=== PATIENT | male | born 1960 | race Hispanic/Latino ===

== ENCOUNTER 2016-12-11 10:15 | Observation (INO) | payer MEDICARE, MEDICAID ==
[2016-12-11 10:16] VITALS: BMI 19.0
[2016-12-11 10:25] VITALS: RESP 18
--- NOTE | 2016-12-11 10:45 | C.PDOC ---
History Of Present Illness 56-year-old male, presents to the emergency department s/p suicide attempt this morning. Patient is complaining of worsening depression and suicidality. Patient states he tried to hang himself, but didn't follow through. Patient is complaining of depression. Denies neck pain, swelling or shortness of breath. Denies overdose, or other injury. Patient is non-compliant with Celexa x2 days. Has a Hx of prior admission for suicide. SP SUICIDE ATTEMPT THIS MORNING, CO WORSENING DEPRESSION AND SUICIDALITY. PS TRIED TO HANG HIMSELF BUT DIDNT FOLLOW THROUGH. CO DEPRESSION. DENIES NECK PAIN , SWELL, SOB. DENIES OVERDOSE, OTHER INJURY. NONCOMPLAINT W CELEXA X 2 DAYS. PRIOR ADMISSION FOR SUICIDE ATTEMPT EXAM MOD DIST NONTOXIC HEENT NEG NECK ATRAUM NO SWELL, NONTEND, NO STRIDOR LUNGS NARD EXT ATRAUM SKIN INTACT PSYCH FLAT AFFECT, NO PSYCHOSIS. +SI Time Seen by Provider: 12/11/16 10:26 Chief Complaint (Nursing): Psychiatric Evaluation Past Medical History Reviewed: Historical Data, Nursing Documentation, Vital Signs Vital Signs: Last Vital Signs Temp 97.9 F 12/11/16 13:16 Pulse 70 12/11/16 13:16 Resp 18 12/11/16 13:16 BP 105/71 12/11/16 13:16 Pulse Ox 96 12/11/16 13:16 - Medical History PMH: Anemia, Anxiety, Bipolar Disorder, Depression, Personality Disorder, Post Traumatic Stress Disorder, Chronic Pain Denies: Diabetes, Hepatitis, HIV, HTN, Chronic Kidney Disease, Seizures, Sexually Transmitted Disease - [facility] Procedures DETOXIFICATION SERVICES FOR SUBSTANCE ABUSE TREATMENT (08/14/16) GROUP AIRPLANE ELECTRICIAN FOR SUBSTANCE ABUSE TREATMENT, PSYCHOEDUCATION (08/14/16) GROUP PSYCHOTHERAPY (08/07/16) INDIVID PSYCHOTHERAP NEC (11/22/14) INDIVIDUAL PSYCHOTHERAPY, BEHAVIORAL (08/07/16) INDIVIDUAL PSYCHOTHERAPY, COGNITIVE-BEHAVIORAL (04/26/16) INDIVIDUAL PSYCHOTHERAPY, SUPPORTIVE (04/26/16) OTHER GROUP THERAPY (11/22/14) PSYCHIAT DRUG THERAP NEC (12/30/13) Family History: States: Unknown Family Hx - Social History Hx Tobacco Use: Yes (heavy smoker) Hx Alcohol Use: No Hx Substance Use: Yes (Opiates, Benzo) - Immunization History Hx Tetanus Toxoid Vaccination: Yes Hx Influenza Vaccination: Yes Hx Pneumococcal Vaccination: No Review Of Systems Cardiovascular: Negative for: Chest Pain Respiratory: Negative for: Shortness of Breath Musculoskeletal: Negative for: Neck Pain Skin: Negative for: Rash Psych: Positive for: Depression, Suicidal ideation Physical Exam - Physical Exam Appears: Non-toxic, No Acute Distress, Other (FLAT AFFECT, NO PSYCHOSIS. +SI) Skin: Warm, Dry, No Rash Head: Atraumatic, Normacephalic Eye(s): bilateral: Normal Inspection, PERRL Nose: Normal Oral Mucosa: Moist Lips: Normal Appearing Neck: Normal ROM, Supple, Other ( ATRAUM NO SWELL, NONTEND, NO STRIDOR) Chest: Symmetrical Respiratory: No Accessory Muscle Use Extremity: Normal ROM Neurological/Psych: Oriented x3, Normal Speech ED Course And Treatment - Laboratory Results Result Diagrams: 12/11/16 10:53 12/11/16 10:53 ECG: Interpreted By Me ECG Rhythm: Sinus Rhythm ECG Interpretation: Normal Rate From EC O2 Sat by Pulse Oximetry: 100 Pulse Ox Interpretation: Normal Progress - Data Reviewed Data Reviewed: Lab, Old records ED OBSERVATION Discharge: Yes Date of observation admission: 12/11/16 Time of observation admission: 10:30 - Observation admission statement Patient is being placed in observation because:: SUICIDE ATTEMPT - Goals of Observation Goals of observation are:: MED CLEAR, PSYCH EVAL - Progress Note Progress Note: 12/11/16 11:31 EXAM UNCHANGED. PT MEDICALLY CLEARED FOR PSYCH EVAL. CRISIS NOTIFIED. 12/11/16 12:34 PENDING CRISIS DISPO. CO EXAC CHRONIC RUE PAIN, DUE FOR OXYCONTIN DOSE. LAST DOSE 6 HRS AGO 12/11/16 13:54 CLEARED FOR DC BY DR REESE PER CRISIS. OUTPT REFERRAL. Disposition Counseled Patient/Family Regarding: Studies Performed, Diagnosis, Need For Followup - Disposition Disposition: HOME/ ROUTINE Disposition Time: 13:55 Condition: GOOD - Clinical Impression Clinical Impression: Depression, Chronic pain - Scribe Statement The provider has reviewed the documentation as recorded by the Alessandra Jin All medical record entries made by the Gomezibkeyonna were at my direction and personally dictated by me. I have reviewed the chart and agree that the record accurately reflects my personal performance of the history, physical exam, medical decision making, and the department course for this patient. I have also personally directed, reviewed, and agree with the discharge instructions and disposition.
[2016-12-11 11:01] LABS: BASO % 0.8 % (0.0-2.0); EOS % 0.6 % (0.0-4.0); HEMATOCRIT 38.9 % (35.0-51.0); LYMPH # 1.4 K/uL (1.0-4.3); LYMPH % 28.9 % (20.0-40.0); MEAN CELL VOLUME 87.3 fL (80.0-94.0); MEAN CORPUSCULAR HEMOGLOBIN 29.3 pg (27.0-31.0); MEAN CORPUSCULAR HGB CONC 33.5 g/dL (33.0-37.0); MEAN PLATELET VOLUME 7.1 fL (7.2-11.7); MONO # 0.4 K/uL (0.0-0.8); MONO % 8.2 % (0.0-10.0); RED CELL DISTRIBUTION WIDTH 14.2 % (11.5-14.5); WHITE BLOOD COUNT 4.8 K/uL (4.8-10.8)
[2016-12-11 11:09] LABS: RBC URINE 28 /hpf (0-3); URINE BILIRUBIN NEGATIVE (NEGATIVE); URINE BLOOD 2+ (NEGATIVE); URINE COLOR Yellow (YELLOW); URINE GLUCOSE (UA) NORMAL (Normal); URINE KETONE NEGATIVE (NEGATIVE); URINE LEUKOCYTE ESTERASE NEG Leu/uL (Negative); URINE PROTEIN NEGATIVE (NEGATIVE); URINE UROBILINOGEN NORMAL mg/dL (0.2-1.0); WBC URINE 1 /hpf (0-5)
[2016-12-11 11:13] LABS: CHLORIDE 99 mmol/L (98-107)
[2016-12-11 11:14] LABS: POTASSIUM 4.1 mmol/L (3.6-5.2); SODIUM 140 mmol/L (132-148)
[2016-12-11 11:16] LABS: ALB/GLOB RATIO 1.3 (1.0-2.1); ALKALINE PHOSPHATASE 72 U/L (38-126); AST/SGOT 33 U/L (17-59); BILIRUBIN,TOTAL 0.6 mg/dL (0.2-1.3); BLOOD UREA NITROGEN 14 mg/dL (9-20); CARBON DIOXIDE 25 mmol/L (22-30); GFR AFRICAN-AMERICAN > 60; TOTAL PROTEIN 7.7 g/dL (6.3-8.3)
[2016-12-11 11:17] LABS: ALT/SGPT 33 U/L (21-72); CALCIUM 9.2 mg/dl (8.6-10.4); GLUCOSE,RANDOM 102 mg/dL (75-110)
[2016-12-11 11:18] LABS: ALCOHOL SERUM < 10 mg/dl (0-10)
[2016-12-11] MEDS ORDERED: oxyCODONE 30 mg Immediate Release Tab PO STA (12:34)
[2016-12-11] MEDS ORDERED: oxyCODONE 30 mg Immediate Release Tab ONE (12:38)
[2016-12-11 13:16] VITALS: BP 105/71; PULSE 70; TEMP 97.9
[2016-12-11 13:55] VITALS: O2SAT 100
--- NOTE | 2016-12-12 17:41 | CARD ---
APPROVED REPORT EKG Measurement Heart [id number] <Conclusion> Normal sinus rhythm Normal ECG
== END 2016-12-11 13:55 | disposition home or self-care (01) ==
LOC: C.ER 10:15 → C.9OBSV 10:30
PROVIDERS: ADMIT Emergency Medicine; ATTEND Emergency Medicine
DX: F32.89 Other specified depressive episodes (principal); F43.10 Post-traumatic stress disorder, unspecified; G89.29 Other chronic pain; F12.10 Cannabis abuse, uncomplicated; F11.10 Opioid abuse, uncomplicated; F19.10 Other psychoactive substance abuse, uncomplicated
CPT/HCPCS: 36415; 80053; 81001; 85025; 93005; 99285; G0378; G0480

== ENCOUNTER 2017-02-12 02:57 | Inpatient (IN) | payer MEDICARE, MEDICAID ==
[2017-02-12 02:57] VITALS: BMI 19.0
--- NOTE | 2017-02-12 03:09 | C.PDOC ---
History Of Present Illness Patient presents to the ER with a complaint of suicidal ideation. Patient is noted to have a superficial abrasion over his left wrist, denies any physical complaints at this time. Time Seen by Provider: 02/12/17 03:08 Chief Complaint (Nursing): Psychiatric Evaluation History Per: Patient History/Exam Limitations: no limitations Onset/Duration Of Symptoms: Hrs Current Symptoms Are (Timing): Still Present Suicide/Self Injury Attempted (Context): Cut Wrists Modifying Factor(s): None Severity: None Pain Scale Rating Of: 0 Associated Symptoms: Suicidal Thoughts. denies: Depression, Suicidal Plan Involuntary Hold By: None Recent travel outside of the [place]: No Past Medical History Reviewed: Historical Data, Nursing Documentation, Vital Signs Vital Signs: Last Vital Signs Temp 97.8 F 02/12/17 04:25 Pulse 68 02/12/17 04:25 Resp 16 02/12/17 04:25 BP 130/85 02/12/17 04:25 Pulse Ox 100 02/12/17 05:43 - Medical History PMH: Anemia, Anxiety, Bipolar Disorder, Depression, Personality Disorder, Post Traumatic Stress Disorder, Chronic Pain Surgical History: No Surg Hx - [facility] Procedures DETOXIFICATION SERVICES FOR SUBSTANCE ABUSE TREATMENT (08/14/16) GROUP MIXING MACHINE TENDER CORK GASKET FOR SUBSTANCE ABUSE TREATMENT, PSYCHOEDUCATION (08/14/16) GROUP PSYCHOTHERAPY (08/07/16) INDIVID PSYCHOTHERAP NEC (11/22/14) INDIVIDUAL PSYCHOTHERAPY, BEHAVIORAL (08/07/16) INDIVIDUAL PSYCHOTHERAPY, COGNITIVE-BEHAVIORAL (04/26/16) INDIVIDUAL PSYCHOTHERAPY, SUPPORTIVE (04/26/16) OTHER GROUP THERAPY (11/22/14) PSYCHIAT DRUG THERAP NEC (12/30/13) Family History: States: No Known Family Hx - Social History Hx Tobacco Use: Yes (heavy smoker) Hx Alcohol Use: No Hx Substance Use: Yes (Opiates, Benzo) - Immunization History Hx Tetanus Toxoid Vaccination: Yes Hx Influenza Vaccination: Yes Hx Pneumococcal Vaccination: No Review Of Systems Constitutional: Negative for: Fever, Chills Gastrointestinal: Negative for: Nausea, Vomiting, Diarrhea Skin: Positive for: Other (Abrasion over left wrist) Physical Exam - Physical Exam Appears: Non-toxic Skin: Warm, Dry Oral Mucosa: Moist Chest: Symmetrical, No Tenderness Cardiovascular: Rhythm Regular, No Murmur Respiratory: No Rales, No Rhonchi, No Wheezing Gastrointestinal/Abdominal: Soft, No Tenderness Extremity: Normal ROM, Capillary Refill (Good ), No Deformity, Other (8cm abrasion over left wrist) Neurological/Psych: Oriented x3 ED Course And Treatment - Laboratory Results Result Diagrams: 02/12/17 04:14 02/12/17 03:14 O2 Sat by Pulse Oximetry: 100 Pulse Ox Interpretation: Normal Progress Note: Blood work and urinalysis ordered. Crisis consulted. ED OBSERVATION Date of observation admission: 02/12/17 Time of observation admission: 04:35 - Observation admission statement Patient is being placed in observation because:: depression - Goals of Observation Goals of observation are:: crisis evaluation - Progress Note Progress Note: 02/12/17 04:35 vitals stable Disposition Counseled Patient/Family Regarding: Studies Performed, Diagnosis - Disposition Disposition Time: 03:08 Condition: UNKNOWN - Clinical Impression Clinical Impression: Depression - Scribe Statement The provider has reviewed the documentation as recorded by the Scribe Jese Mazariegos All medical record entries made by the Scribe were at my direction and personally dictated by me. I have reviewed the chart and agree that the record accurately reflects my personal performance of the history, physical exam, medical decision making, and the department course for this patient. I have also personally directed, reviewed, and agree with the discharge instructions and disposition. Physician Patient Turnover Patient Signed Over To: Karin Johnson Handoff Comments: Pending evaluation by dr Gates and disposition
--- NOTE | 2017-02-12 03:20 | C.PDOC ---
Chief Complaint (Nursing): Psychiatric Evaluation Past Medical History - Medical History PMH: Anemia, Anxiety, Bipolar Disorder, Depression, Personality Disorder, Post Traumatic Stress Disorder, Chronic Pain Denies: Diabetes, Hepatitis, HIV, HTN, Chronic Kidney Disease, Seizures, Sexually Transmitted Disease - [facility] Procedures DETOXIFICATION SERVICES FOR SUBSTANCE ABUSE TREATMENT (08/14/16) GROUP LAND APPRAISER FOR SUBSTANCE ABUSE TREATMENT, PSYCHOEDUCATION (08/14/16) GROUP PSYCHOTHERAPY (08/07/16) INDIVID PSYCHOTHERAP NEC (11/22/14) INDIVIDUAL PSYCHOTHERAPY, BEHAVIORAL (08/07/16) INDIVIDUAL PSYCHOTHERAPY, COGNITIVE-BEHAVIORAL (04/26/16) INDIVIDUAL PSYCHOTHERAPY, SUPPORTIVE (04/26/16) OTHER GROUP THERAPY (11/22/14) PSYCHIAT DRUG THERAP NEC (12/30/13) Family History: States: Unknown Family Hx - Social History Hx Tobacco Use: Yes (heavy smoker) Hx Alcohol Use: No Hx Substance Use: Yes (Opiates, Benzo) - Immunization History Hx Tetanus Toxoid Vaccination: Yes Hx Influenza Vaccination: Yes Hx Pneumococcal Vaccination: No
[2017-02-12 03:40] LABS: SQUAMOUS EPITHIAL < 1 /hpf (0-5); URINE BILIRUBIN NEGATIVE (NEGATIVE); URINE BLOOD 2+ (NEGATIVE); URINE CLARITY Clear (Clear); URINE COLOR Yellow (YELLOW); URINE GLUCOSE (UA) NORMAL (Normal); URINE LEUKOCYTE ESTERASE NEG Leu/uL (Negative); URINE NITRATE NEGATIVE (NEGATIVE); URINE PROTEIN NEGATIVE (NEGATIVE); URINE UROBILINOGEN NORMAL mg/dL (0.2-1.0)
[2017-02-12 03:49] LABS: BARBITURATES, UR NEGATIVE (NEGATIVE); BENZODIAZEPINES, UR POSITIVE (NEGATIVE)
[2017-02-12 03:52] LABS: ALBUMIN 3.7 g/dL (3.5-5.0); OPIATES, UR POSITIVE (NEGATIVE)
[2017-02-12 03:53] LABS: PHENCYCLIDINE, UR NEGATIVE (NEGATIVE)
[2017-02-12 03:54] LABS: GFR AFRICAN-AMERICAN > 60; GFR NON-AFRICAN AMERICAN > 60
[2017-02-12 03:55] LABS: ALB/GLOB RATIO 1.2 (1.0-2.1); ALT/SGPT 21 U/L (21-72); AST/SGOT 24 U/L (17-59); BLOOD UREA NITROGEN 12 mg/dL (9-20); CALCIUM 9.1 mg/dl (8.6-10.4)
[2017-02-12 04:17] LABS: BASO # 0.1 K/uL (0.0-0.2); EOS # 0.1 K/uL (0.0-0.7); EOS % 2.2 % (0.0-4.0); HEMOGLOBIN 11.7 g/dL (12.0-18.0); LYMPH # 1.6 K/uL (1.0-4.3); LYMPH % 27.9 % (20.0-40.0); MEAN CELL VOLUME 88.1 fL (80.0-94.0); MEAN CORPUSCULAR HEMOGLOBIN 29.3 pg (27.0-31.0); MEAN CORPUSCULAR HGB CONC 33.2 g/dL (33.0-37.0); MEAN PLATELET VOLUME 7.8 fL (7.2-11.7); MONO # 0.4 K/uL (0.0-0.8); MONO % 7.8 % (0.0-10.0); NEUT # 3.4 K/uL (1.8-7.0); NEUT % 61.1 % (50.0-75.0); RBC 4.01 Mil/uL (4.40-5.90); RED CELL DISTRIBUTION WIDTH 14.8 % (11.5-14.5); WHITE BLOOD COUNT 5.6 K/uL (4.8-10.8)
[2017-02-12 04:25] VITALS: O2SAT 100
[2017-02-12] MEDS ORDERED: oxyCODONE 30 mg Immediate Release Tab PO STA (07:59)
[2017-02-12] MEDS ORDERED: oxyCODONE 30 mg Immediate Release Tab ONE (08:05)
[2017-02-12] MEDS ORDERED: Pneumococcal 23-Valent Vaccine IM ONE (13:04)
[2017-02-12] MEDS: oxyCODONE 30 mg Immediate Release Tab PO PRN ×2 (14:42→19:59)
--- NOTE | 2017-02-12 18:20 | PCM.PSYCH ---
Initial Psychiatric Evaluation - Initial Psychiatric Evaluation Type of Admission: Voluntary Chief Complaint (in patient's own words): I am depressed and suicidal History of Present Illness and Precipitating Events: Patient is a 56 years old, single, currently unemployed, male with history of depression and PTSD, was admitted due to worsening of depression and suicidal ideations. Patient who lives in a detention, reported started feeling depression because of his roommate. Patient reported he became very depressed and irritable at times because of his roommates behavior. Patient reported he started feeling suicidal and on his way to the hospital he cut superficially on his left wrist. Also in the ER, patient attempted to hang himself in the bathroom with a sheet. In the ER patient was on 1-1 precaution for safety. Reported feeling depressed with decreased sleep, feeling tired in the morning. Decrease appetite and lost some weight. Reported 3-4 suicidal attempts in the past by cutting on his arm and also by hanging. History of 4 previous admissions at [facility]. This is patient's fifth admission. Reported irritability, anger at times. Denied any psychotic or anxiety symptoms. History of manic episodes in the past. Reported he was getting Celexa and Seroquel. Patient is also on very high doses of oxycodone 30 mg by mouth Q4 to 6 hours, fentanyl patch and Klonopin 1 mg 3 times a day. Patient is getting this medication from his pain management doctor. Doses of oxycodone, fentanyl and Klonopin but confirmed from his pain management doctor. We'll continue with oxycodone and Klonopin and will hold fentanyl. Patient's urine drug screen was also positive for methadone and cocaine, patient denied use of methadone and cocaine. Patient also smokes about one pack of cigarettes daily. Patient was born in [place], has high school graduation, is not working since 2007. On SSDI. Lives in shelters, never and has 2 grown up children. His height is 6 feet and weight is 147 pounds. Current Medications: Active Medications Generic Name Dose Route Start Last Admin Trade Name Freq PRN Reason Stop Dose Admin Citalopram Hydrobromide 40 mg 02/12/17 13:15 02/12/17 14:41 Celexa PO 40 mg DAILY ROSALINA Administration Clonazepam 1 mg 02/12/17 14:00 02/12/17 14:42 Klonopin PO 1 mg TID ROSALINA Administration Gabapentin 300 mg 02/12/17 18:00 Neurontin PO BID ROSALINA Haloperidol 5 mg 02/12/17 13:15 02/12/17 16:14 Haldol PO 5 mg Q6 PRN Administration Agitation Hydroxyzine HCl 25 mg 02/12/17 13:15 Atarax PO Q6 PRN Anxiety Nicotine 1 patch 02/12/17 16:30 02/12/17 16:25 Nicoderm Cq TD 1 patch DAILY ROSALINA Administration Oxycodone HCl 30 mg 02/12/17 13:12 02/12/17 14:42 Oxycodone Immediate Release Tab PO 30 mg Q6H PRN Administration Pain, severe (8-10) Trazodone HCl 50 mg 02/12/17 22:00 Desyrel PO [facility] Past Psychiatric History - Past Psychiatric History Previous Treatment History: Inpatient At [facility]: [facility] History of Abuse: None reported History of ETOH/Drug Use: See HPI History of Family Illness: None reported Pertinent Medical Hx (Current Medical&Sleep Prob, Allergies): Allergies Allergy/AdvReac Type Severity Reaction Status Date / Time ketorolac tromethamine Allergy Severe RASH Verified 12/11/16 10:24 [From Toradol] promethazine HCl Allergy Severe RASH Verified 12/11/16 10:24 [From Phenergan] RX: clonazePAM [Klonopin] 1 mg PO TID 05/14/15 RX: oxyCODONE [oxyCODONE Immediate Release Tab] 30 mg PO Q4H PRN #10 tab Citalopram Hydrobromide [Celexa] 40 mg PO DAILY 08/14/16 RX: Fentanyl 1 each TD Q72 09/20/16 Quetiapine Fumarate [Seroquel] 100 mg PO DAILY 02/12/17 Remeron mg PO HS 02/12/17 Hepatitis C Review of Systems - Psychiatric Psychiatric: Depression Mental Status Examination - Personal Presentation Personal Presentation: Looks stated age - Affect Affect: Depressed - Motor Activity Motor Activity: Calm - Reliability in Providing Information Reliability in Providing Information: Fair - Speech Speech: Organized - Mood Mood: Depressed - Formal Thought Process Formal Thought Process: No Impairment - Hallucinations/Delusions Hallucinations: Other (None reported) Delusions: Other - Obsessions/Compulsions Obsessions: None Compulsions: None - Cognitive Functions Orientation: Person, Place, Situation, Time Sensorium: Alert Attention/Concentration: Attentive Abstract Thinking: [place] Estimate of Intelligence: Average Judgement: Intact, as evidence by: Insight regarding need for hospitalization Memory: Recent intact, as evidence by: 3/3 object recall, Remote intact, as evidenced by: Ability to recall historical events - Risk Risk: Withdrawal, Diminished functioning - Strength & Assets Inventory Strength & Assets Inventory: Other - Limitations Limitations: Other DSM 5 DX - DSM 5 DSM 5 Diagnosis: Bipolar 1 disorder most recent episode depressed without psychotic features PTSD Opiate use disorder Cocaine use disorder - Recommended/Plan of Treatment Treatment Recommendations and Plan of Treatment: Patient education Supportive therapy We'll continue his home medications including Celexa, oxycodone and Klonopin Other when necessary medications Projected ELOS: 5-6 days - Smoking Cessation Smoking Cessation Initiated: Yes
[2017-02-13] MEDS: oxyCODONE 30 mg Immediate Release Tab PO PRN ×4 (01:59→20:30)
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
[2017-02-14] MEDS: oxyCODONE 30 mg Immediate Release Tab PO PRN ×4 (02:58→20:42)
--- NOTE | 2017-02-15 00:34 | PCM.PYCHPN ---
Psychiatric Progress Note - Psychiatric Progress Note Patient seen today, length of contact: 18 min Patient Chief Complaint: "I want to leave tomorrow" Problems Identified/Issues Discussed: The pt is seen, chart reviewed and case discussed He is again staff splitting, cussing at times (f word mostly), demanding more meds and intimidating staff He continues to resist any talk on his painkiller use and blames drs who made him "like this" (RSD, etc.) He looks comfortable and calm, otherwise. No manifestation of pain observed. Since he is positive for methadone, even though he denies it, we are being careful with oxycontins. Moreover, he now asked to leave but when mortgage or loan underwriter said he could d/c him today, he smirked and said he would rescind it as he was "planning" on leaving tomorrow. Environmental Web Crawler agreed and also discussed med chane: from seroquel to abilify due to sedation Also, gabapentin dc'ed as he doesn't "like" it and had negative experience one time Support and psychoed given Medication Change: Yes (abilify, dc seroquel and gabapentin) Medical Record Reviewed: Yes Mental Status Examination - Cognitive Function Orientation: Person, Place, Situation, Time Memory: Intact Attention: WNL Concentration: WNL Association: [facility] Fund of Knowledge: WN - Mood Mood: Depressed, Other (angry and irate) - Affect Affect: Constricted, Other (angry, irate) - Speech Speech: Appropriate - Formal Thought Process Formal Thought Process: No Impairment - Suicidal Ideation Suicidal Ideation: No - Homicidal Ideation Homicidal Ideation: No Goal/Treatment Plan - Goal/Treatment Plan Need for Continued Stay: Discharge may exacerbated symptoms, Severe functional impairment Progress Toward Problem(s) and Goals/Treatment Plan: Bipolar/depressed: - Increase seroquel - Increase gabapentin - celexa is at highest safe dose - Indiv and group tx Antisocail / borderline pers.: - Limit and structure - Indiv and group tx PTSD: - Indiv tx - Continue meds Medical: - Continue medical tx as it is Case discussed with the team and admin. Estimated Date of D/C: 02/15/17
[2017-02-15] MEDS: oxyCODONE 30 mg Immediate Release Tab PO PRN ×2 (02:37→08:34)
[2017-02-15 07:39] VITALS: BP 116/46; PULSE 64; RESP 20; TEMP 97.7
--- NOTE | 2017-02-15 09:33 | PCM.PYCHDC ---
Mental Status Examination - Mental Status Examination Orientation: Person, Place, Situation, Time Memory: Intact Mood: Anxious Affect: Constricted Speech: Appropriate Attention: WNL Concentration: WNL Association: WNL Fund of Knowledge: WNL Formal Thought Process: No Impairment Suicidal Ideation: No Current Homicidal Ideation?: No Discharge Summary - Discharge Note Reason for Hospitalization: Suicidal ideation Psychiatric History (includes Medical, Family, Personal Hx): Multiple admissions , manipulative suicide gestures Consultations:: List each consultation separately and include: 1. Reason for request. 2. Findings. 3. Follow-up Summary of Hospital Course include:: 1. Description of specific treatment plan utilized for patients during their course of treatmen. 2. Summarize the time- course for resolution of acute symptoms and/or regressed behaviors. 3. Describe issues identified and worked on during hospitalization. 4. Describe medication utilized. 5. Describe medical problems identified and treated. 6. Reassessment of suicide risk Summary of Hospital Course: The pt was admitted and started on treatment with psychotherapy, support, psychoeducation and medications. [place] and CBT used. The pt attended groups and activities, as well as milieu therapy. All the risks and benefits of medications are discussed and the patient understood and agreed. However, he then declined seroquel increase and gabapentin due to side-effects. He was OK with trying ABilify but very reluctantly He was NOT at all interested and invested in any psych care. He was mostly focused on painkillers. Even though he understood and agreed with not getting any fentanyl patch (it is a suicide risk due to higgh potency opiate and can be swallowed, shared, stolen etc.) and q6h oxy, he began causing problems once he is inside. 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 Also, in ER he likely feigned a suicide gesture by ripping a sheet and wrapping around his neck, knowing well he will be found. He blamed not getting oxycontin as his reason. Meanwhile, he has not seemed even a bit in pain during all of his stay. He eats , sleeps and socializes just fine and is pleasant with select patients, but yet when asked he says he has 9-10 pain. He is also vague about his outside rx and likely comes to ED when he is out of his meds After care discussed with the patient. He was already enrolled on [facility] and did not want t o change The patient improved with the treatment provided and discharged as planned. 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 Moreover, he is on klonopin 3 mg/d, he used to take less last year (same with painkillers - he was on much less dose but gets agitated when he is questioned about that) He also came positive for cocaine and methadone but again he denied using them. He may well have used the latter if he indeed ran out of oxycontins. - Final Diagnosis (DSM 5) Condition upon Discharge: UNKNOWN DSM 5: Depressive d/o - unspecified r/o MDD r/o bipolar d/o which is unlikely Antisocial and borderline personality d/o Opioid use d/o - severe Cocaine use d/o Disposition: HOME/ ROUTINE Follow-up Treatment Plan: Continue below medications after discharge. Follow after care plan as discussed above. Use relapse prevention skills. Return to ER or call 911 if suicidal, homicidal or symptoms relapse. Stay away from stress, alcohol and drugs. Use relaxation techniques. See primary doctor once a year and get labs. Prescriptions/Medication Reconciliation: ARIPiprazole [Abilify] 5 mg PO QPM #30 tab hydrOXYzine HCl [Atarax] 50 mg PO HS #30 tab - Smoking Cessation Smoking Cessation Medication prescribed: No - Antipsychotic Medications Pt discharged on 2 or more routine antipsychotic medications: No
== END 2017-02-15 11:00 | disposition home or self-care (01) | DRG 885 ==
LOC: C.ER 02:57 → C.9OBSV 04:34 → OBSVTOIN 09:54 → C.9E 09:58 → C.5E 11:01
PROC: GZ3ZZZZ Medication Management (ICD-10-PCS; principal; 2017-02-12)
PROC: GZHZZZZ Group Psychotherapy (ICD-10-PCS; 2017-02-12)
PROC: GZ56ZZZ Individual Psychotherapy, Supportive (ICD-10-PCS; 2017-02-12)
DX: F31.30 Bipolar disorder, current episode depressed, mild or moderate severity, unspecified (principal); S60.812A Abrasion of left wrist, initial encounter; X78.9XXA Intentional self-harm by unspecified sharp object, initial encounter; F43.10 Post-traumatic stress disorder, unspecified; R45.851 Suicidal ideations; F11.90 Opioid use, unspecified, uncomplicated; F14.90 Cocaine use, unspecified, uncomplicated; F17.210 Nicotine dependence, cigarettes, uncomplicated; Y92.89 Other specified places as the place of occurrence of the external cause